=== PATIENT | male | born 1980 | race Two or more races ===

== ENCOUNTER 2022-05-03 17:34 | Emergency (ER) | payer OTHER ==
[~2022-05-03] VITALS: Ht 177.8 cm; Wt 156.5 kg
[2022-05-03] MEDS ORDERED: KETO10TA2 PO (19:49)
[2022-05-03] MEDS ORDERED: NORFLEX100MG PO (19:49)
== END 2022-05-03 19:56 | disposition home or self-care (01) ==
LOC: ER 17:34
DX: S89.92XA Unspecified injury of left lower leg, initial encounter (principal); S89.91XA Unspecified injury of right lower leg, initial encounter; W19.XXXA Unspecified fall, initial encounter; Y93.9 Activity, unspecified; Y92.9 Unspecified place or not applicable